=== PATIENT | male | born 1960 | race Caucasian/White ===

== ENCOUNTER → 2024-05-05 | Outpatient (CLI) | payer MEDICARE, BC, SELFPAY ==
--- NOTE | 2024-05-05 | XR_ITS ---
Examination: Wrist, left 3 views Technique: Wrist AP, oblique, lateral 3 views Date and time of exam: May 05, 2024 1218 hours INDICATIONS: Wrist pain 2 years FINDINGS: Advanced osteoarthritis first carpometacarpal joint No fracture No avascular necrosis IMPRESSION: Advanced osteoarthritis first carpometacarpal joint
--- NOTE | 2024-05-05 | XR_ITS ---
Examination: Left elbow 3 views Technique: Elbow AP, oblique, lateral 3 views Exam date and time: May 05, 2024 1218 hours INDICATIONS: Left elbow pain beginning 2 years ago. FINDINGS: Mild elbow osteoarthritis, including spurring of the coronoid process of the ulna No fracture or dislocation IMPRESSION: Mild osteoarthritis.
== END | disposition home or self-care (01) ==
PROVIDERS: PCP Family Medicine; Referring Provider Family Medicine; Visit Provider Family Medicine
DX: M18.12 Unilateral primary osteoarthritis of first carpometacarpal joint, left hand (principal); M19.022 Primary osteoarthritis, left elbow; T33 Superficial frostbite
CPT/HCPCS: 73080; 73110